=== PATIENT | male | born 1970 ===

== ENCOUNTER 2025-03-03 13:01 | Emergency (ER) | payer SELFPAY ==
[~2025-03-03] VITALS: Ht 170.2 cm; Wt 180.0 kg
[2025-03-03] MEDS: LevETIRAcetam 1,000 MG in DEXTROSE 5%-WATER 100 ML IV ONE (13:40)
[2025-03-03 13:41] VITALS: BP 165/113; PULSE 116; RESP 18; O2SAT 98
[2025-03-03] MEDS: ONDANSETRON HCL 4 MG/2 ML VIAL IVP ONE (13:41)
== END 2025-03-03 14:33 | disposition left against medical advice (07) ==
LOC: EMS 13:01 → EDBD 13:01 → EMS 14:33
DX: G40.909 Epilepsy, unspecified, not intractable, without status epilepticus (principal); I10 Essential (primary) hypertension; Z88.0 Allergy status to penicillin
CPT/HCPCS: 99283; J0712; J7060